=== PATIENT | male | born 2005 | race African-American/Black ===

== ENCOUNTER 2023-11-19 12:52 | Emergency (ER) | payer OTHER ==
[2023-11-19 13:02] VITALS: RESP 18; BMI 20.5
[2023-11-19] MEDS ORDERED: FAMOTIDINE 20 MG/50 ML IVPB 20 MG/50 ML MG IVPB ONE (13:53)
[2023-11-19] MEDS ORDERED: METOCLOPRAMIDE HCL INJECTION 10 MG/2 ML VIAL ONE (13:53)
[2023-11-19] MEDS ORDERED: ACETAMINOPHEN INJECTION 100 ML IVPB ONE (13:53)
[2023-11-19 13:56] LABS: BASO % 0.1 % (0-2.0); EOS % 0.1 % (0-4.5); HEMATOCRIT 47.5 % (35.4-49); HEMOGLOBIN 15.4 GM/dL (11.7-16.9); LYMPH % 3.9 % (8-40); MCH 25.9 pg (25.7-33.7); MCHC 32.4 g/dl (32.0-35.9); MEAN CELL VOLUME 80.1 fl (80-96); MEAN PLT VOLUME 8.3 fl (7.5-11.1); MONO % 7.8 % (3.8-10.2); NEUT % 88.1 % (42.8-82.8); PLATELET COUNT 233 10^3/uL (134-434); RBC 5.93 M/mm3 (4.00-5.60); RDW 14.5 % (11.9-15.9); WHITE BLOOD COUNT 10.9 K/mm3 (4.0-10.0)
[2023-11-19 14:02] LABS: INR 1.14 (0.83-1.09); PROTHROMBIN TIME (PATIENT) 13.2 SEC (9.7-13.0)
[2023-11-19 14:04] LABS: ACTIVATED PTT 29.3 SECONDS (25.2-36.5)
[2023-11-19] MEDS: SODIUM CHLORIDE 1,000 ML IV STA (14:04)
[2023-11-19] MEDS: FAMOTIDINE 20 MG/50 ML IVPB 20 MG/50 ML MG IVPB ONE (14:05)
[2023-11-19] MEDS: METOCLOPRAMIDE HCL INJECTION 10 MG/2 ML VIAL IVPUSH ONE (14:05)
[2023-11-19] MEDS: ACETAMINOPHEN 1000 MG/100 ML BAG IVPB ONE (14:05)
[2023-11-19 14:16] LABS: POTASSIUM 3.8 mmol/L (3.5-5.1)
[2023-11-19 14:18] LABS: ALBUMIN 4.1 g/dl (3.4-5.0); CALCIUM 9.9 mg/dL (8.5-10.1)
[2023-11-19 14:19] LABS: BLOOD UREA NITROGEN 15.8 mg/dL (7-18)
[2023-11-19 14:21] LABS: CREATININE 0.9 mg/dL (0.55-1.3)
[2023-11-19 14:23] LABS: TOT PROT 7.6 g/dl (6.4-8.2)
[2023-11-19 14:57] LABS: URINE APPEARANCE CLEAR; URINE BILIRUBIN NEGATIVE (NEGATIVE); URINE COLOR YELLOW; URINE GLUCOSE (UA) NEGATIVE (NEGATIVE); URINE KETONE TRACE (NEGATIVE); URINE LEUK ESTERASE NEGATIVE (NEGATIVE); URINE NITRITE NEGATIVE (NEGATIVE); URINE PROTEIN NEGATIVE (NEGATIVE)
[2023-11-19 20:12] VITALS: BP 96/44; PULSE 69; TEMP 98.4
[2023-11-19] MEDS ORDERED: DOXYCYCLINE HYCLATE 100 MG CAPSULE PO ONE (20:22)
[2023-11-19] MEDS: DOXYCYCLINE HYCLATE 100 MG CAPSULE PO ONE (20:46)
== END 2023-11-19 20:46 | disposition home or self-care (01) ==
LOC: JER 12:52
PROC: 3E033GC Introduction of Other Therapeutic Substance into Peripheral Vein, Percutaneous Approach (ICD-10-PCS; principal; 2023-11-19)
PROC: 3E033GC Introduction of Other Therapeutic Substance into Peripheral Vein, Percutaneous Approach (ICD-10-PCS; 2023-11-19)
PROC: 3E033GC Introduction of Other Therapeutic Substance into Peripheral Vein, Percutaneous Approach (ICD-10-PCS; 2023-11-19)
PROC: 3E02329 Introduction of Other Anti-infective into Muscle, Percutaneous Approach (ICD-10-PCS; 2023-11-19)
DX: N45.3 Epididymo-orchitis (principal); Z20.822 Contact with and (suspected) exposure to COVID-19
CPT/HCPCS: 0241U-QW; 36415; 74177-TC; 76870-TC; 80053; 81003; 85025; 85610; 85730; 87086; 87491; 87591; 99285-25; J0131; Q9967